=== PATIENT | male | born 1990 | race Caucasian/White ===

== ENCOUNTER 2022-05-13 21:04 | Outpatient (CLI) | payer OTHER, SELFPAY ==
--- NOTE | 2022-05-21 12:47 | W.PM.SLEEP ---
Sleep Study Details Details Interpreting Provider: Olvin Agosto MD Date of Sleep Study: 05/13/22 Sleep Study Details: STUDY TYPE:? Hospital polysomnogram ? BMI:? 33.3 ORDERING PROVIDER:? Ria INDICATION:? Concerns about sleep apnea ? SLEEP SUMMARY:? Sleep time 266 minutes, efficiency 67.8, latency 16.5, REM latency 306.5. Arousal index 17.8 RESPIRATORY SUMMARY:? Mean oxygen awake 94 asleep 93 minimum 86. 2.2 minutes oxygen was between 80 and 88%. AHI 14.2, RDI 22.1. Supine REM AHI is 5.2. There was minimal positional variation between supine and nonsupine sleep. PERIODIC LIMB MOVEMENTS OF SLEEP:? Index 10.6, index with arousal 0.2 CARDIAC:? Awake 61 asleep 54. No arrhythmias noted IMPRESSION:? [id number] obstructive sleep apnea with an AHI of 14.2 and an RDI of 22.1. RECOMMENDATION: Treatment options include AutoSet CPAP at a pressure of 4-17, dental appliance and/or airway expansion surgery. CPAP is favored.
== END 2022-05-13 21:05 | disposition home or self-care (01) ==
PROVIDERS: PCP Family Medicine; Visit Provider Family Medicine
DX: G47.33 Obstructive sleep apnea (adult) (pediatric) (principal)
CPT/HCPCS: 95810

== ENCOUNTER 2023-05-30 08:27 | Outpatient (CLI) | payer BC, SELFPAY | END 2023-05-30 08:28 | disposition home or self-care (01) | PROVIDERS: PCP Family Medicine; Visit Provider Family Medicine | DX: Z00.00 Encounter for general adult medical examination without abnormal findings (principal); E78.5 Hyperlipidemia, unspecified; E66.9 Obesity, unspecified; R79.89 Other specified abnormal findings of blood chemistry; K76.0 Fatty (change of) liver, not elsewhere classified; N20.0 Calculus of kidney | CPT/HCPCS: 80048; 80061; 80076 ==

== ENCOUNTER 2024-01-19 07:32 | Outpatient (CLI) | payer BC, SELFPAY ==
--- OUTSIDE RECORDS SUMMARY | 2024-01-21 11:39 | XMS_ITS ---
Author Name Unknown Organization [facility] Address [address] [place] [address] Care Team Providers Care Population Geneticist Name Role Phone Unavailable Unavailable Unavailable Surgery Details Not on file Complications Check Surgery Details section. Procedure Estimated Blood Loss Check Surgery Details section. Procedure Findings Check Surgery Details section. Procedure Specimens Taken Check Surgery Details section.
--- OUTSIDE RECORDS SUMMARY | 2024-01-21 11:39 | XMS_ITS | Clinical Summary ---
Author Name Unknown Organization [facility] Address [address] [place] [address] Care Team Providers Care Financial Services Auditor Name Role Phone Elsewhere, Pcp Primary Care Provider Unavailabl e Source Comments Patient records contain information from all sites at [facility]. For routine questions regarding patient records, call [phone] during business hours, M-F 8:00 AM - 5:00 PM Central Time. Record requests for emergency care only can be directed to [phone] at any time.[facility] Allergies No known active allergies Medications Medication Sig Dispensed Refills Start Date End Date Status escitalopram (LEXAPRO) 20 mg tablet Take 20 mg by mouth daily. 10/28/2022 Active cyclobenzaprine (FLEXERIL) 5 mg tablet Take 1-2 tablets (5-10 mg total) by mouth 3 (three) times a day as needed for muscle spasms. 30 tablet 11/10/2022 Active Active Problems No known active problems Social History Tobacco Use Types Packs/Day Years Used Date Smoking Tobacco: Never Passive Smoke Exposure: Never Smokeless Tobacco: Never Tobacco Cessation:Counseling Given: Not Answered Nutrition Answer Date Recorded Nutrition: EVOO Fat Source Unknown 11/10 Nutrition: Servings of Fruits/Vegetables per Day Not on file 11/10/2022 Dental Answer Date Recorded Dental: Regular Dentist Unknown 11/10/19 23 Sex and Gender Information Value Date Recorded Sex Assigned at Not on file Gender Identity Not on file Sexual Orientation Not on file Last Filed Vital Signs Vital Sign Reading Time Taken Comments Blood Pressure 134/87 11/10/2022 3:46 PM MACHINE HEEL SPRAYER Pulse 101 11/10/2022 3:46 PM MACHINE HEEL SPRAYER Temperature 36.9 ??C (98.4 ??F) 11/10/2022 3:46 PM CS T Respiratory Rate 18 11/10/2022 3:46 PM MACHINE HEEL SPRAYER Oxygen Saturation 99% 11/10/2022 3:46 PM MACHINE HEEL SPRAYER Inhaled Oxygen Concentration - - Weight 113 kg (248 lb 14.4 oz) 11/10/2022 3:45 P M MACHINE HEEL SPRAYER Height - - Body Mass Index - - Plan of Treatment Health Maintenance Due Date Last Done Comments HIV Screening 1990 Hepatitis C Screening 1990 Hepatitis B Vaccines (1 of 3 - 19+ 3-dose series) 2009 HPV Vaccines (2 - Male 3-dose series) 10/07/2011 09/09/2011 COVID-19 Vaccine (4 - season) 2023 09/25/2021, 01/24/2021, 12/27/2020 Influenza Vaccine (#1) 2023 , 07/08/2018, 08/19/2017, Additional history exists Depression Screening (Annual PHQ-2) 09/29/2023 DTaP,Tdap,and Td Vaccines (2 - Td or Tdap) 05/12/2028 05/12/2018 Pneumococcal vaccine (0-64 years) Aged Out No longer eligible based on patient's age to complete this topic Care Teams Financial Services Auditor Relationship Specialty Start Date End Date Elsewhere, Pcp PCP - General Internal Medicine 11/10/22
--- OUTSIDE RECORDS SUMMARY | 2024-01-21 11:39 | XMS_ITS | Referral Summary ---
Author Name Unknown Organization [facility] Address [address] [place] [address] Care Team Providers Care Mother Baby Rn Name Role Phone Elsewhere, Pcp Primary Care Provider Unavailabl e Source Comments Patient records contain information from all sites at [facility]. For routine questions regarding patient records, call [phone] during business hours, M-F 8:00 AM - 5:00 PM Central Time. Record requests for emergency care only can be directed to [phone] at any time.[facility] Allergies No known active allergies Medications Medication [...] Comments Blood Pressure 134/87 11/10/2022 3:46 PM COTTON BALL BAGGER Pulse 101 11/10/2022 3:46 PM COTTON BALL BAGGER Temperature 36.9 ??C (98.4 ??F) 11/10/2022 3:46 PM CS T Respiratory Rate 18 11/10/2022 3:46 PM COTTON BALL BAGGER Oxygen Saturation 99% 11/10/2022 3:46 PM COTTON BALL BAGGER Inhaled Oxygen Concentration - - Weight 113 kg (248 lb 14.4 oz) 11/10/2022 3:45 P M COTTON BALL BAGGER Height - - Body Mass Index - - Plan of Treatment Not on file Care Teams Mother Baby Rn Relationship Specialty Start Date End Date Elsewhere, Pcp PCP - General Internal Medicine 11/10/22
== END 2024-01-19 07:33 | disposition home or self-care (01) ==
LOC: NFLDREF 01-21 11:35
PROVIDERS: PCP Family Medicine; Referring Provider Family Medicine; Visit Provider Family Medicine
DX: E78.2 Mixed hyperlipidemia (principal)
CPT/HCPCS: 80061; 80076

== ENCOUNTER 2024-07-01 10:14 | Outpatient (CLI) | payer BC, SELFPAY ==
--- OUTSIDE RECORDS SUMMARY | 2024-07-01 10:20 | XMS_ITS | Referral Summary ---
Author Organization [facility] Address [address] [place] [address] Care Team Providers Care Test Inspection Engineer Name Role Phone Elsewhere, Pcp Primary Care Provider Unavailabl e Source Comments Patient records contain information from all sites at [facility]. For routine questions regarding patient records, call [phone] during business hours, M-F 8:00 AM - 5:00 PM Central Time. Record requests for emergency care only can be directed to [phone] at any time.[facility] Allergies No known active allergies Medications [...] Comments Blood Pressure 134/87 11/10/2022 3:46 PM OPERATIONS OFFICER Pulse 101 11/10/2022 3:46 PM OPERATIONS OFFICER Temperature 36.9 ??C (98.4 ??F) 11/10/2022 3:46 PM CS T Respiratory Rate 18 11/10/2022 3:46 PM OPERATIONS OFFICER Oxygen Saturation 99% 11/10/2022 3:46 PM OPERATIONS OFFICER Inhaled Oxygen Concentration - - Weight 113 kg (248 lb 14.4 oz) 11/10/2022 3:45 P M OPERATIONS OFFICER Height - - Body Mass Index - - Plan of Treatment Not on file Care Teams Test Inspection Engineer Relationship Specialty Start Date End Date Elsewhere, Pcp PCP - General Internal Medicine 11/10/22
--- OUTSIDE RECORDS SUMMARY | 2024-07-01 10:20 | XMS_ITS | Clinical Summary ---
Author Organization [facility] Address [address] [place] [address] Care Team Providers Care Marine Equipment Research Engineer Name Role Phone Elsewhere, Pcp Primary Care Provider Unavailabl e Source Comments Patient records contain information from all sites at [facility]. For routine questions regarding patient records, call [phone] during business hours, M-F 8:00 AM - 5:00 PM Central Time. Record requests for emergency care only can be directed to [phone] at any time.[facility] Allergies No known active allergies [...] Comments Blood Pressure 134/87 11/10/2022 3:46 PM ROUNDING AND BACKING MACHINE OPERATOR Pulse 101 11/10/2022 3:46 PM ROUNDING AND BACKING MACHINE OPERATOR Temperature 36.9 ??C (98.4 ??F) 11/10/2022 3:46 PM CS T Respiratory Rate 18 11/10/2022 3:46 PM ROUNDING AND BACKING MACHINE OPERATOR Oxygen Saturation 99% 11/10/2022 3:46 PM ROUNDING AND BACKING MACHINE OPERATOR Inhaled Oxygen Concentration - - Weight 113 kg (248 lb 14.4 oz) 11/10/2022 3:45 P M ROUNDING AND BACKING MACHINE OPERATOR Height - - Body Mass Index - - Plan of Treatment Health Maintenance Due Date Last Done Comments HIV Screening 1990 Hepatitis C Screening 1990 Hepatitis B Vaccines (1 of 3 - 19+ 3-dose series) 2009 HPV Vaccines (2 - Male 3-dose series) 10/07/2011 09/09/2011 Depression Screening (Annual PHQ-2) 09/29/2023 COVID-19 Vaccine ( season) 2024 09/25/2021, 01/24/2021, 12/27/2020 Influenza Vaccine (#1) 2024 , 07/08/2018, 08/19/2017, Additional history exists DTaP,Tdap,and Td Vaccines (2 - Td or Tdap) 05/12/2028 05/12/2018 Pneumococcal vaccine (0-64 years) Aged Out No longer eligible based on patient's age to complete this topic Care Teams Marine Equipment Research Engineer Relationship Specialty Start Date End Date Elsewhere, Pcp PCP - General Internal Medicine 11/10/22
--- OUTSIDE RECORDS SUMMARY | 2024-07-01 10:20 | XMS_ITS ---
Author Organization [facility] Address [address] [place] [address] Care Team Providers Care Career Technology Teacher Name Role Phone Unavailable Unavailable Unavailable Surgery Details Not on file Complications Check Surgery Details section. Procedure Estimated Blood Loss Check Surgery Details section. Procedure Findings Check Surgery Details section. Procedure Specimens Taken Check Surgery Details section.
== END 2024-07-01 10:15 | disposition home or self-care (01) ==
PROVIDERS: PCP Family Medicine; Visit Provider Family Medicine
DX: Z00.00 Encounter for general adult medical examination without abnormal findings (principal); E78.2 Mixed hyperlipidemia; R79.89 Other specified abnormal findings of blood chemistry; E66.9 Obesity, unspecified; K76.0 Fatty (change of) liver, not elsewhere classified; F41.9 Anxiety disorder, unspecified
CPT/HCPCS: 80048; 80061; 80076

== ENCOUNTER 2025-08-15 09:26 | Outpatient (CLI) | payer BC, SELFPAY | END 2025-08-15 09:27 | disposition home or self-care (01) | PROVIDERS: PCP Family Medicine; Visit Provider Family Medicine | DX: E78.2 Mixed hyperlipidemia (principal); R79.89 Other specified abnormal findings of blood chemistry | CPT/HCPCS: 80048; 80061; 80076 ==